=== PATIENT | male | born 1955 | race Caucasian/White ===

== ENCOUNTER 2024-12-05 18:04 | Emergency (ER) | payer MEDICARE, OTHER ==
[~2024-12-05] VITALS: Ht 182.9 cm; Wt 90.7 kg
[2024-12-05] MEDS ORDERED: CEPHALEXIN500 MG PO (18:42)
[2024-12-05] MEDS: LIDOCAINE HCL 1% LOCAL INJ 20 ML VIAL INJ STA (19:23)
[2024-12-05 19:47] VITALS: PULSE 81; RESP 17; TEMP 98.3; O2SAT 98
== END 2024-12-05 19:47 | disposition home or self-care (01) ==
LOC: ER 18:10
DX: S01.112A Laceration without foreign body of left eyelid and periocular area, initial encounter (principal); W01.110A Fall on same level from slipping, tripping and stumbling with subsequent striking against sharp glass, initial encounter; Y92.89 Other specified places as the place of occurrence of the external cause; I10 Essential (primary) hypertension; E11.9 Type 2 diabetes mellitus without complications
CPT/HCPCS: 70450; 70486; 72125; 99283

== ENCOUNTER 2024-12-19 15:45 | Emergency (ER) | payer MEDICARE, OTHER ==
[~2024-12-19] VITALS: Ht 182.9 cm; Wt 90.7 kg
[~2024-12-19 15:45] MED LIST: CEPHALEXIN500 MG PO
[2024-12-19 16:11] VITALS: PULSE 68; RESP 18; TEMP 98.2
[2024-12-19 17:39] VITALS: BP 121/84; PULSE 62; RESP 18; TEMP 98.3; O2SAT 98
== END 2024-12-19 17:09 | disposition home or self-care (01) ==
LOC: ER 16:22
DX: Z48.02 Encounter for removal of sutures (principal)
CPT/HCPCS: 99282